=== PATIENT | female | born 2000 | race Caucasian/White ===

== ENCOUNTER 2023-08-12 16:14 | Emergency (ER) | payer OTHER ==
[~2023-08-12] VITALS: Ht 160 cm; Wt 55.3 kg
[2023-08-12] MEDS ORDERED: FOLIC ACID0.8 M1 (17:08)
[2023-08-12] MEDS ORDERED: PRENA1 TRUE CO1 EACH (17:08)
[2023-08-12 18:45] LABS: URINE APPEARANCE Clear; URINE BILIRRUBIN Negative (NEGATIVE); URINE BLOOD Negative; URINE COLOR Yellow; URINE GLUCOSE Negative (NEGATIVE); URINE LEUKOCYTE Negative; URINE NITRATE Negative; URINE PROTEIN Negative (NEGATIVE); URINE UROBILINOGEN 0.2 E.U./dl
[2023-08-12 18:50] LABS: URINE BACTERIA 683.9 uL (0.0-1933); URINE EPITHELIAL CELLS 18.3 uL (0.0-38.8); URINE WBC 4.9 uL (0.0-23.2)
[2023-08-12 19:02] LABS: INR 0.94; PARTIAL THROMBOPLASTIN TIME 26.9 SECONDS (22.0-34.0); PROTHROMBIN TIME 9.9 SECONDS (9.0-11.5)
[2023-08-12 19:12] LABS: ALBUMIN 3.8 gm/dL (3.4-5.0); BILIRUBIN TOTAL 0.24 mg/dL (0.3-1.2); CALCIUM 9.5 mg/dL (8.5-10.1); CREATININE SERUM 0.6 mg/dL (0.55-1.02); GFR 125.01; GLOBULINA 4.2 G/DL (2.4-3.5); POTASSIUM 3.78 mEq/L (3.5-5.1)
[2023-08-12 19:39] LABS: URINE RBC 1.2 uL (0.0-20.8)
[2023-08-12 20:24] LABS: HEMATOCRIT 37.1 % (36.0-45.00); HEMOGLOBIN 11.7 g/dL (12.0-15.00); MEAN CELL VOLUME 82.1 fL (80.00-100.00); MEAN CORPUSCULAR HEMOGLOBIN 25.9 pg (27.00-32.0); MEAN CORPUSCULAR HGB CONC 31.5 g/dl (32.0-36.0); RED BLOOD COUNT 4.51 M/uL (4.00-6.00); RED CELL DISTRIBUTION WIDTH 13.5 % (11.5-14.5)
[2023-08-12 20:42] LABS: PLATELET COUNT 109 K/uL (150-450)
== END 2023-08-12 22:10 | disposition home or self-care (01) ==
LOC: ER 16:14
PROVIDERS: General Practice
DX: D69.6 Thrombocytopenia, unspecified (principal); O99.111 Other diseases of the blood and blood-forming organs and certain disorders involving the immune mechanism complicating pregnancy, first trimester; Z3A.09 9 weeks gestation of pregnancy